=== PATIENT | female | born 1995 | race Caucasian/White ===

== ENCOUNTER → 2016-06-07 | Outpatient (CLI) | payer MEDICAID, OTHER, SELFPAY ==
[~2016-06-07] MED LIST: Motrin PO; NEOSPORIN TOP; Norco PO; Tylenol PO; birth control PO
== END ==
LOC: M OUTALCOH 12:48
PROVIDERS: ATTEND Psychiatry & Neurology Psychiatry
DX: Z13.9 Encounter for screening, unspecified (principal); F11.20 Opioid dependence, uncomplicated; F13.20 Sedative, hypnotic or anxiolytic dependence, uncomplicated; F12.20 Cannabis dependence, uncomplicated

== ENCOUNTER 2016-06-14 09:14 | Outpatient (RCR) | payer MEDICAID | END 2016-06-15 | LOC: M OUTALCOH 09:14 | PROVIDERS: ATTEND Psychiatry & Neurology Psychiatry ==

== ENCOUNTER → 2016-06-16 | Outpatient (REF) | payer OTHER | LOC: M SFHCPLAZ 15:49 | PROVIDERS: ATTEND Nurse Practitioner Family | DX: Z00.00 Encounter for general adult medical examination without abnormal findings (principal); Z53.8 Procedure and treatment not carried out for other reasons ==

== ENCOUNTER → 2016-06-17 | Outpatient (REF) | payer OTHER ==
[2016-06-17 15:22] LABS: BASO % 0.6 % (0.0-1.0); EOS # 0.1 K/mm3 (0.0-0.50); EOS % 1.2 % (0.0-3.0); LARGE UNSTAINED CELL # 0.2 K/mm3 (0.0-0.4); LARGE UNSTAINED CELL % 2.5 % (0.0-4.0); LYMPH # 2.3 K/mm3 (1.5-6.5); LYMPH % 31.6 % (24.0-44.0); MEAN CORPUSCULAR HEMOGLOBIN 28.5 pg (27.0-33.0); MEAN CORPUSCULAR HGB CONC 32.9 g/dl (32.0-36.5); MEAN CORPUSCULAR VOLUME 86.8 fl (80.0-96.0); MONO # 0.4 K/mm3 (0.0-0.8); NEUTROPHILS # 4.3 K/mm3 (1.8-7.7); NEUTROPHILS % 58.1 % (36.0-66.0); PLATELET COUNT, AUTOMATED 252 k/mm3 (150-450); RED CELL DISTRIBUTION WIDTH 14.3 % (11.5-14.5); WHITE BLOOD COUNT 7.4 K/mm3 (4.0-10.0)
[2016-06-17 15:37] LABS: ALBUMIN/GLOBULIN RATIO 1.25 (1.00-1.93); ALKALINE PHOSPHATASE 70 U/L (45-117); ALT/SGPT 19 U/L (12-78); ANION GAP 10 MEQ/L (8-16); AST/SGOT 16 U/L (15-37); BLOOD UREA NITROGEN 8 MG/DL (7-18); CALCIUM LEVEL 9.2 MG/DL (8.5-10.1); CARBON DIOXIDE LEVEL 24 MEQ/L (21-32); CHLORIDE LEVEL 107 MEQ/L (98-107); CREATININE FOR GFR 0.68 MG/DL (0.55-1.02); GLOMERULAR FILTRATION RATE > 60.0 (>60); GLUCOSE, FASTING 114 MG/DL (70-105); POTASSIUM SERUM 4.3 MEQ/L (3.5-5.1); SODIUM LEVEL 141 MEQ/L (136-145); TOTAL PROTEIN 7.2 GM/DL (6.4-8.2)
[2016-06-21 14:10] LABS: CONTROL LINE INT CTR LINE PRESENT; HIV SCRN NEGATIVE (NEGATIVE); HIV SCRN1 NEGATIVE (NEGATIVE)
== END ==
LOC: M SFHCPLAZ 13:44
PROVIDERS: ATTEND Nurse Practitioner Family
DX: Z00.00 Encounter for general adult medical examination without abnormal findings (principal); F19.90 Other psychoactive substance use, unspecified, uncomplicated

== ENCOUNTER → 2016-11-05 | Outpatient (CLI) | payer OTHER ==
--- NOTE | 2016-11-05 21:16 | REP ---
AP PELVIS: 11/05/2016. Clinical history: Pain. Findings: Two views were provided to encompass the entirety of the pelvis. There is some minor rim osteophytes for each femoral head and slight osteophyte formation acetabular roof. Hip joint spaces are symmetric, perhaps slightly narrowed. Pelvic ring intact. Pubic rami, symphysis pubis, and iliac wings without fracture. The SI joints, sacral ala and foramina intact. Impression: 1. Minor degenerative changes of the hips with rim osteophytes on the femoral head and acetabular roof although mild. Slight narrowing of the hip joint space. No other significant finding. Signed by Kennedy Eddy MD 11/06/2016 07:36 P
--- NOTE | 2016-11-05 21:23 | REP ---
AP LATERAL LEFT HIP: 11/05/2016. Comparison: AP pelvis today and a CT abdomen and pelvis 12/22/2011. Findings: Small rim osteophyte in the femoral head and at the acetabular roof margins. Slight narrowing of the hip joint space but no erosions, AVN, fracture or focal lesion. Acetabulum, ischia, symphysis pubis, iliac bone, and SI joints as well as sacral ala/foramina intact. Impression: 1. Minor degenerative changes at femoral head and acetabular roof with marginal osteophytes and mild joint space narrowing. No fracture, AVN or destructive lesion. Signed by Kennedy Eddy MD 11/06/2016 07:36 P
== END ==
LOC: M LRY 18:44
PROVIDERS: ATTEND Nurse Practitioner Family
DX: R10.2 Pelvic and perineal pain (principal); S79.912D Unspecified injury of left hip, subsequent encounter; X58.XXXD Exposure to other specified factors, subsequent encounter

== ENCOUNTER 2018-06-29 14:10 | Emergency (ER) | payer OTHER ==
[~2018-06-29] VITALS: Ht 160 cm; Wt 51.9 kg
[2018-06-29] MEDS ORDERED: BUSP15TA47 (14:18)
[2018-06-29] MEDS ORDERED: QUET1TAB8 (14:18)
[2018-06-29] MEDS ORDERED: SERT-155 (14:18)
[2018-06-29] MEDS ORDERED: LIDOCAINE 2% W/EPIN INJ 20ML **PRES FREE INJ ONE (15:00)
[2018-06-29] MEDS ORDERED: BACT800T5 PO (16:02)
[2018-06-29] MEDS ORDERED: FLAG500T PO (16:02)
[2018-06-29 16:11] VITALS: BP 101/59
[2018-06-29 17:11] LABS: CHLAMYDIA DNA AMPLIFICATION NEGATIVE (NEGATIVE); GC DNA AMPLIFICATION NEGATIVE (NEGATIVE)
== END 2018-06-29 16:15 | disposition home or self-care (01) ==
LOC: M ED 14:10
DX: N73.2 Unspecified parametritis and pelvic cellulitis (principal); N76.0 Acute vaginitis; Z88.5 Allergy status to narcotic agent; Z91.018 Allergy to other foods; F17.210 Nicotine dependence, cigarettes, uncomplicated

== ENCOUNTER → 2019-01-30 | Outpatient (CLI) | payer OTHER ==
[~2019-01-30] MED LIST changes: +BACT800T5 PO; +BUSP15TA47; +FLAG500T PO; +QUET1TAB8; +SERT50TA29
[2019-01-30 13:13] LABS: HEMATOCRIT 38.9 % (36.0-47.0); MEAN CORPUSCULAR HEMOGLOBIN 27.9 pg (27.0-33.0); MEAN CORPUSCULAR HGB CONC 30.8 g/dl (32.0-36.5); MEAN CORPUSCULAR VOLUME 90.5 fl (80.0-96.0); PLATELET COUNT, AUTOMATED 334 10^3/uL (150-450); WHITE BLOOD COUNT 6.6 10^3/uL (4.0-10.0)
[2019-01-30 13:45] LABS: ALBUMIN 3.3 GM/DL (3.2-5.2); ALT/SGPT 533 U/L (12-78); BILIRUBIN,TOTAL 1.7 MG/DL (0.2-1.0); BLOOD UREA NITROGEN 10 MG/DL (7-18); CALCIUM LEVEL 9.5 MG/DL (8.5-10.1); CARBON DIOXIDE LEVEL 32 MEQ/L (21-32); CHLORIDE LEVEL 101 MEQ/L (98-107); CREATININE FOR GFR 0.54 MG/DL (0.55-1.30); GLOMERULAR FILTRATION RATE > 60.0 (>60); GLUCOSE, FASTING 65 MG/DL (70-100); POTASSIUM SERUM 4.5 MEQ/L (3.5-5.1); SODIUM LEVEL 137 MEQ/L (136-145); TOTAL PROTEIN 7.3 GM/DL (6.4-8.2)
[2019-01-30 14:45] LABS: CHLAMYDIA DNA AMPLIFICATION NEGATIVE (NEGATIVE); GC DNA AMPLIFICATION NEGATIVE (NEGATIVE)
[2019-01-30 21:28] LABS: HCG, SERUM QUALITATIVE NEGATIVE (NEGATIVE)
[2019-01-31 09:53] LABS: HEPATITIS B SURFACE ANTIGEN NEGATIVE (NEGATIVE)
--- NOTE | 2019-01-31 10:18 | ECGEPIP ---
[facility] Test Date: 2019-01-30 Pat Name: CELINE ORTIZ Department: Room: - Gender: Female Cleaner Laboratory Equipment: TERRELL : 1995 Requested By: Luis Valencia Order Number: [id number] Reading MD: Yoan Richards Measurements Intervals [place] Rate: 69 P: 17 ME: 134 QRS: 77 QRSD: 101 T: 38 QT: 419 QTc: 449 Interpretive Statements SINUS RHYTHM WITH SINUS ARRHYTHMIA Comparison tracing not on file Electronically Signed on 01-31-2019 10:17:52 EDT by Yoan Richards
[2019-01-31 10:21] LABS: HEPATITIS C VIRUS ABY INDEX 0.1 INDEX (<0.8)
[2019-01-31 10:22] LABS: HIV 1&2 SCREEN CENTAUR NEGATIVE (NEGATIVE)
== END ==
LOC: M LAB 11:38
PROVIDERS: ATTEND Family Medicine
DX: F11.20 Opioid dependence, uncomplicated (principal)

== ENCOUNTER → 2019-07-12 | Outpatient (CLI) | payer MEDICAID ==
[~2019-07-12] MED LIST changes: +QUET100T2; -QUET1TAB8
[2019-07-12 17:46] LABS: BASO % 0.2 % (0.0-1.0); EOS # 0.1 10^3/uL (0.0-0.5); HEMATOCRIT 40.3 % (36.0-47.0); HEMOGLOBIN 13.1 g/dl (12.0-15.5); LYMPH # 2.1 10^3/uL (1.5-5.0); LYMPH % 24.4 % (24.0-44.0); MEAN CORPUSCULAR HEMOGLOBIN 28.7 pg (27.0-33.0); MEAN CORPUSCULAR HGB CONC 32.5 g/dl (32.0-36.5); MEAN CORPUSCULAR VOLUME 88.2 fl (80.0-96.0); MONO # 0.7 10^3/uL (0.0-0.8); MONO % 8.1 % (0.0-5.0); NEUTROPHILS # 5.8 10^3/uL (1.5-8.5); NEUTROPHILS % 65.8 % (36.0-66.0); PLATELET COUNT, AUTOMATED 253 10^3/uL (150-450); RED BLOOD COUNT 4.57 10^6/uL (4.00-5.40); WHITE BLOOD COUNT 8.8 10^3/uL (4.0-10.0)
[2019-07-12 18:26] LABS: ALBUMIN 3.9 GM/DL (3.2-5.2); ALT/SGPT 27 U/L (12-78); BILIRUBIN,TOTAL 1.4 MG/DL (0.2-1.0); BLOOD UREA NITROGEN 6 MG/DL (7-18); CALCIUM LEVEL 8.8 MG/DL (8.5-10.1); CARBON DIOXIDE LEVEL 30 MEQ/L (21-32); CHLORIDE LEVEL 104 MEQ/L (98-107); CREATININE FOR GFR 0.48 MG/DL (0.55-1.30); GLOMERULAR FILTRATION RATE > 60.0 (>60); GLUCOSE, FASTING 60 MG/DL (70-100); HCG, SERUM QUANTITATIVE 66022 MIU/ML; POTASSIUM SERUM 3.8 MEQ/L (3.5-5.1); SODIUM LEVEL 138 MEQ/L (136-145); TOTAL PROTEIN 7.2 GM/DL (6.4-8.2)
== END ==
LOC: M LAB 17:03
PROVIDERS: ATTEND Physician Assistant
DX: F11.14 Opioid abuse with opioid-induced mood disorder (principal); Z33.1 Pregnant state, incidental

== ENCOUNTER → 2019-07-18 | Outpatient (CLI) | payer MEDICAID ==
--- NOTE | 2019-07-18 13:41 | REP ---
FIRST TRIMESTER ULTRASOUND: Real-time sonographic evaluation gravid uterus performed. There is a single living intrauterine gestation. The estimated gestational age is 12 weeks 4 days based on today's ultrasound measurements with EDC 01/26/2020. BPD 18 mm = 12 weeks 5 days HC 67 mm = 12 weeks 5 days AC 66 mm = 12 weeks 3 days FL 8 mm = 12 weeks 3 days heart rate 152 beats per minute. There is no subchorionic hemorrhage. No maternal adnexal regional abnormalities are seen. The ovaries are normal in size and echotexture. Electronically Signed by Luis Gasca MD 07/18/2019 04:11 P
[2019-07-18 14:58] LABS: HEPATITIS C VIRUS ABY INDEX < 0.0 INDEX (<0.8); HIV 1&2 SCREEN CENTAUR NEGATIVE (NEGATIVE)
== END ==
LOC: M RAD 12:25
PROVIDERS: ATTEND Physician Assistant
DX: Z36.89 Encounter for other specified antenatal screening (principal); Z3A.12 12 weeks gestation of pregnancy

== ENCOUNTER → 2019-07-30 | Outpatient (REF) | payer OTHER | LOC: M PLALAB 13:46 | PROVIDERS: ATTEND Obstetrics & Gynecology | DX: Z53.9 Procedure and treatment not carried out, unspecified reason (principal) ==

== ENCOUNTER → 2019-07-30 | Outpatient (CLI) | payer MEDICAID ==
[2019-07-30 13:35] LABS: HEMATOCRIT 41.9 % (36.0-47.0); HEMOGLOBIN 14.3 g/dl (12.0-15.5); MEAN CORPUSCULAR HEMOGLOBIN 29.9 pg (27.0-33.0); MEAN CORPUSCULAR HGB CONC 34.1 g/dl (32.0-36.5); MEAN CORPUSCULAR VOLUME 87.7 fl (80.0-96.0); PLATELET COUNT, AUTOMATED 270 10^3/uL (150-450); RED BLOOD COUNT 4.78 10^6/uL (4.00-5.40); WHITE BLOOD COUNT 8.7 10^3/uL (4.0-10.0)
[2019-07-30 14:50] LABS: ALBUMIN 3.7 GM/DL (3.2-5.2); ALT/SGPT 19 U/L (12-78); BILIRUBIN,TOTAL 1.1 MG/DL (0.2-1.0); BLOOD UREA NITROGEN 9 MG/DL (7-18); CALCIUM LEVEL 9.2 MG/DL (8.5-10.1); CARBON DIOXIDE LEVEL 25 MEQ/L (21-32); CHLORIDE LEVEL 104 MEQ/L (98-107); CREATININE FOR GFR 0.54 MG/DL (0.55-1.30); GLOMERULAR FILTRATION RATE > 60.0 (>60); GLUCOSE, FASTING 72 MG/DL (70-100); HCG, SERUM QUANTITATIVE 47326 MIU/ML; HEPATITIS B SURFACE ANTIGEN NEGATIVE (NEGATIVE); HEPATITIS C VIRUS ABY INDEX < 0.0 INDEX (<0.8); HIV 1&2 SCREEN CENTAUR NEGATIVE (NEGATIVE); SODIUM LEVEL 136 MEQ/L (136-145); TOTAL PROTEIN 7.2 GM/DL (6.4-8.2)
[2019-08-01 14:07] LABS: HEPATITIS C QUANTITATION HCV Not Detected IU/mL (.)
== END ==
LOC: M LAB 12:42
PROVIDERS: ATTEND Family Medicine
DX: F11.10 Opioid abuse, uncomplicated (principal)

== ENCOUNTER → 2019-09-05 | Outpatient (REF) | payer OTHER ==
[2019-09-05 15:22] LABS: HEMATOCRIT 35.6 % (36.0-47.0); HEMOGLOBIN 12.1 g/dl (12.0-15.5); MEAN CORPUSCULAR HEMOGLOBIN 29.7 pg (27.0-33.0); MEAN CORPUSCULAR VOLUME 87.5 fl (80.0-96.0); PLATELET COUNT, AUTOMATED 239 10^3/uL (150-450); RED BLOOD COUNT 4.07 10^6/uL (4.00-5.40); WHITE BLOOD COUNT 11.3 10^3/uL (4.0-10.0)
[2019-09-05 16:39] LABS: HEPATITIS B SURFACE ANTIGEN NEGATIVE (NEGATIVE); HEPATITIS C VIRUS ABY INDEX 0.1 INDEX (<0.8); HIV 1&2 SCREEN CENTAUR NEGATIVE (NEGATIVE); RUBELLA IgG QUALITATIVE IMMUNE (IMMUNE)
== END ==
LOC: M PLALAB 13:58
PROVIDERS: ATTEND Obstetrics & Gynecology
DX: Z34.91 Encounter for supervision of normal pregnancy, unspecified, first trimester (principal)

== ENCOUNTER → 2019-09-14 | Outpatient (CLI) | payer OTHER ==
--- NOTE | 2019-09-14 15:28 | REP ---
OBSTETRIC SONOGRAPHY: HISTORY: Supervision of , for anatomy. FINDINGS: Scanning through the gravid uterus demonstrates a single living intrauterine gestation in a cephalic lie. motion is observed, and heart rate is recorded at 140 beats per minute. An anterior grade 1 placenta is seen without evidence of previa or abruption. Amniotic fluid is subjectively normal. Closed cervical length is 3.5 cm, viewed transabdominally. No extrauterine abnormalities observed. No abnormality is observed. Right ventricular cardiac outflow tract view is less than optimally achieved due to position. The following additional anatomic structures are identified and felt to be unremarkable: cranium, choroid plexus, cavum, cerebellum and posterior fossa, face and profile, lungs, four-chamber heart with left ventricular outflow tract view, diaphragm, left-sided stomach, abdominal wall cord insertion, three-vessel cord, kidneys and bladder, spine, upper and lower extremities. BIOMETRY CHART: BPD 4.8 cm = 20 weeks 3 days Head circumference 17.5 cm = 20 weeks 0 days Abdominal circumference 15.7 cm = 20 weeks 6 days Femur length 3.3 cm = 20 weeks 3 days Humeral length 3.1 cm = 20 weeks 3 days HC/AC ratio normal 1.11 Cephalic index normal 0.77 Estimated weight 366 grams, 0 pounds 12 ounces, 37th percentile for 20 weeks 6 days. IMPRESSION: Viable single intrauterine gestation at 20 weeks 3 days by today's composite criteria. Expected gestational age estimate based on prior sonography is 20 weeks 6 days. [place] by prior sonography, January 26, 2020. No abnormality is noted. The right ventricular cardiac outflow tract view is less than optimally visualized. Electronically Signed by Michael Lainez MD 09/14/2019 04:20 P
== END ==
LOC: M RAD 13:08
PROVIDERS: ATTEND Advanced Practice Midwife
DX: Z34.02 Encounter for supervision of normal first pregnancy, second trimester (principal)

== ENCOUNTER → 2019-11-01 | Outpatient (CLI) | payer OTHER ==
[~2019-11-01] MED LIST changes: -BUSP15TA47; +BUSP15TA47 PO; +DOCU100C16 PO; +IBUP80TA PO; +METH10TA2 PO; +PERCOCET PO; +PRENTAB9 PO
[2019-11-01 16:41] LABS: HEMOGLOBIN 11.5 g/dl (12.0-15.5); MEAN CORPUSCULAR HEMOGLOBIN 30.7 pg (27.0-33.0); MEAN CORPUSCULAR HGB CONC 32.9 g/dl (32.0-36.5); MEAN CORPUSCULAR VOLUME 93.3 fl (80.0-96.0); PLATELET COUNT, AUTOMATED 238 10^3/uL (150-450); RED BLOOD COUNT 3.75 10^6/uL (4.00-5.40); WHITE BLOOD COUNT 8.9 10^3/uL (4.0-10.0)
== END ==
LOC: M WUC 10:48
PROVIDERS: ATTEND Advanced Practice Midwife
DX: Z36.89 Encounter for other specified antenatal screening (principal)

== ENCOUNTER → 2019-11-20 | Outpatient (REF) | payer OTHER ==
[2019-11-20 19:40] LABS: CHLAMYDIA DNA AMPLIFICATION NEGATIVE (NEGATIVE); GC DNA AMPLIFICATION NEGATIVE (NEGATIVE)
== END ==
LOC: M SFHCWAGY 16:56
PROVIDERS: ATTEND Advanced Practice Midwife
DX: Z34.03 Encounter for supervision of normal first pregnancy, third trimester (principal)

== ENCOUNTER → 2019-12-27 | Outpatient (REF) | payer OTHER | LOC: M SFHCWAGY 08:56 | PROVIDERS: ATTEND Advanced Practice Midwife | DX: Z36.85 Encounter for antenatal screening for Streptococcus B (principal) ==

== ENCOUNTER 2020-01-29 07:40 | Inpatient (IN) | payer OTHER ==
[2020-01-29] VITALS (50 sets, daily range): BP systolic 89–148; BP diastolic 49–76
[~2020-01-29] VITALS: Ht 160 cm; Wt 88.7 kg
[~2020-01-29 07:40] MED LIST changes: -DOCU100C16 PO; -IBUP80TA PO; -METH10TA2 PO; -PERCOCET PO; -PRENTAB9 PO
[2020-01-29] MEDS ORDERED: LACTATED RINGER'S 1000 ML IV STA (09:32)
[2020-01-29] MEDS ORDERED: PENICILLIN G POTASSIUM IV 5 MU in D5W MINI-BAG PLUS 100 ML IV STA ×2 (09:32→11:16)
[2020-01-29] MEDS ORDERED: OXYTOCIN DRIP 30 UNITS in IV 1 EA IV SCH (09:45)
[2020-01-29 09:51] LABS: HEMATOCRIT 38.1 % (36.0-47.0); HEMOGLOBIN 13.2 g/dl (12.0-15.5); MEAN CORPUSCULAR HEMOGLOBIN 30.8 pg (27.0-33.0); MEAN CORPUSCULAR HGB CONC 34.6 g/dl (32.0-36.5); MEAN CORPUSCULAR VOLUME 88.8 fl (80.0-96.0); PLATELET COUNT, AUTOMATED 213 10^3/uL (150-450); RED BLOOD COUNT 4.29 10^6/uL (4.00-5.40); WHITE BLOOD COUNT 8.3 10^3/uL (4.0-10.0)
[2020-01-29] MEDS ORDERED: METH10TA2 PO (09:59)
[2020-01-29] MEDS ORDERED: PRENTAB9 PO (09:59)
[2020-01-29] MEDS ORDERED: CALCIUM CARBONATE 500 MG CHEW U/D PO ONE (10:00)
--- NOTE | 2020-01-29 10:01 | HPEPDOC ---
Obstetrical History & Physical General Date of Admission Jan 29, 2020 at 07:40 History of Present Illness 24-year-old G2, P0010 at 40+3 weeks gestation. Presents today for an elective non-medically indicated induction of labor. She is currently incarcerated. No complications. However, patient is opioid dependent on methadone 65 mg per day. She also takes BuSpar 15 mg twice a day. 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 History: Spontaneous Past Medical History Medical History Opioid dependence, depression, anxiety Surgical History: Other (left eye, retinal detachment repair) Family History Significant Family History: Asthma, Diabetes Social History Social history Pt enrolled in [employer] program Marital Status: Single Psychosocial History: Anxiety, Depression * Smoker: non-smoker Alcohol: Denies Drugs: heroin (past use) Abuse Violence Screening Have you been hit/kicked/slapp: No Have you been sexually assault: No Allergies Coded Allergies: latex (Verified Allergy, Intermediate, RASH, 01/29/20) tomato (Verified Allergy, Intermediate, spaghetti sauce- skin rash, 01/29/20) codeine (Verified Adverse Reaction, Mild, night terrors, 01/29/20) Medications Scheduled Buspirone HCl (Buspirone HCl) 15 Mg Tab, 15 PO BID Methadone HCl (Methadone HCl) 10 Mg Tablet, 65 MG PO DAILY No.137/Iron/Folic Acd ( Vitamin Tablet) 1 Each Tablet, 1 TAB PO DAILY Physical Examination Physical Examination GENERAL: Alert and oriented times three. BREAST: . ABDOMEN: Gravid and non-tender to touch. FETUS: Is vertex (VTX) by sterile vaginal examination (SVE), fetus is vertex (VT X) by Gavin. HEART RATE: Regular rate and rhythm. LUNGS: Clear to auscultation (CTA). EXTREMITIES: No edema. No clonus. Deep tendon reflexes (DTRs) + 2. Vital Signs/I&O Vital Signs Date Time Temp Pulse Resp B/P (MAP) Pulse Ox O2 Delivery O2 Flow Rate FiO2 9/15/20 07:57 97.4 85 18 127/75 (92) Laboratory Data 24H LABS Laboratory Tests 2 01/29/20 07:59: Serology Scanned Report Hepatitis B Testing CBC/BMP Laboratory Tests 01/29/20 09:00 Pertinent Laboratoy Data Blood Type: O+ RBC Antibody Screen: Negative HIV: Negative Hepatitis B: Negative Hepatitis C: Negative Rapid Plasma Reagin: Nonreactive Rubella: Immune Chlamydia/Gonorrhea: Negative Group B Streptococcus: Positive Glucose Tolerance Test: 105 Anatomy Ultrasound Normal Anatomy: Yes (2nd trimester routine US) Placenta Previa: No Vaginal Examination Dilation: 3 cm Effacement: 70% Station: -3 Cervical Consistency: Soft Cervical Position: Posterior Presentation: Cephalic presentation Assessment Heart Rate (FHR): 130 Variability: Moderate Accelerations: Positive Decelerations: None Tocometer Contractions: Yes Frequency: irregular Assessment/Plan Assessment Catie is a 24-year-old (G)2 para (P)0-0-1-0 at 40+2 weeks by first TM US/LMP. Presents to Labor and Delivery (L&D) for elective IOL. Plan Admit and orient. Paper Machine Back Tender and consent. Diet: clear. Group B Streptococcus (GBS) positive. Labs and intravenous (IV) per unit protocol. Counseled on Pitocin and induction of labor (IOL). Lactated Ringers (LR): Bolus 1000 mL, then at 125 mL/hr. Anticipate normal spontaneous delivery (). C-S as appropriate. SPRING MONTGOMERY DO Jan 29, 2020 10:01
[2020-01-29] MEDS: LR 1,000 ML IV SCH ×2 (11:08→15:57)
[2020-01-29] MEDS: busPIRone 5 MG TAB PO SCH ×2 (11:31→21:24)
[2020-01-29] MEDS: METHADONE 10 MG TAB (S0109) PO SCH (11:32)
[2020-01-29] MEDS ORDERED: PENICILLIN G POTASSIUM IV 2.5 MU in IV 1 EA IV SCH (13:45)
[2020-01-29] MEDS: PENICILLIN G POTASSIUM IV 2.5 MU in IV 1 EA IV SCH ×2 (15:55→19:30)
--- NOTE | 2020-01-29 19:22 | IPNPDOC ---
Obstetrical Progress Note Date of Service Jan 29, 2020 Subjective Feeling much more uncomfortable with contractions. No LOF. Mild spotting. Plans on getting epidural soon. Objective Vital Signs Date Time Temp Pulse Resp B/P (MAP) Pulse Ox O2 Delivery O2 Flow Rate FiO2 01/29/20 18:05 98.2 75 16 114/59 (77) Assessment Heart Rate (FHR): 110 Variability: Moderate Accelerations: Positive Decelerations: None Heart Rate Tracing: Category I Tocometer Contractions: Yes Frequency: every 3-7 min. Sterile Vaginal Examination Dilation: 4 cm Effacement (%): 70% Station: -2 Cervical Consistency: Soft Cervical Position: Middle Postion/Presentation: Cephalic presentation Assessment and Plan Status: Reassuring Additional Comments AROM clear Continue Pitocin Consult anesthesia for epidural upon patient request. SPRING MONTGOMERY DO Jan 29, 2020 19:22
[2020-01-29] MEDS ORDERED: FENTANYL 2MCG/ML ROPIVACAINE 0.2% IN 0.9% NACL 100ML IVBAG As Ordered ONE (19:27)
[2020-01-29] MEDS ORDERED: EPIDURAL COMMENT XX SCH (20:55)
[2020-01-29] MEDS ORDERED: FENTANYL/ROPIVACAINE/NACL BAG 100 ML EPIDURAL SCH (20:55)
[2020-01-29] MEDS ORDERED: EPIDURAL/PCA KEYS XX PRN (20:55)
[2020-01-29] MEDS ORDERED: ePHEDrine SULFATE 25 MG/5 ML(5MG/ML) SYRINGE IV PRN (20:55)
[2020-01-29] MEDS ORDERED: NALOXONE INJ 0.4MG/1ML VIAL (J2310 PER 1MG) IV PRN (20:55)
[2020-01-29] MEDS ORDERED: REFRIGERATOR IV KEYS XX PRN (20:55)
[2020-01-29] MEDS ORDERED: diphenhydrAMINE 50MG/ML VIAL (J1200) IV PRN (20:55)
[2020-01-29] MEDS ORDERED: LACTATED RINGER'S 1000 ML IV PRN (20:55)
[2020-01-29] MEDS ORDERED: ONDANSETRON 4MG/2ML VIAL IV PRN (20:55)
[2020-01-29] MEDS ORDERED: **PENDING PCN ENTRY XX SCH (21:00)
[2020-01-29] MEDS ORDERED: ePHEDrine SULFATE 25 MG/5 ML(5MG/ML) SYRINGE As Ordered ONE (21:09)
--- NOTE | 2020-01-29 23:00 | IPNPDOC ---
Obstetrical Progress Note Date of Service Jan 29, 2020 Subjective Pt comfortable with epidural. Objective Vital Signs Date Time Temp Pulse Resp B/P (MAP) Pulse Ox O2 Delivery O2 Flow Rate FiO2 01/29/20 22:33 90 18 118/64 (82) 01/29/20 19:34 97.8 Assessment Heart Rate Tracing: Category I (+scalp stim) Tocometer Contractions: Yes Frequency: every 3-7 min. Sterile Vaginal Examination Dilation: 5 cm Effacement (%): 90% Station: -1 Cervical Consistency: Soft Cervical Position: Anterior Postion/Presentation: Cephalic presentation Assessment and Plan Status: Reassuring Group B Streptococcus: Positive Anticipate: Vaginal Delivery Additional Comments Early active labor. Reassuring maternal and status. Good pain control. -Continue low dose Pitocin protocol. DO VALENTINA Esquivel JONATHAN R. DO Jan 29, 2020 23:00
[2020-01-30] VITALS (20 sets, daily range): BP systolic 99–136; BP diastolic 53–79
[2020-01-30] MEDS: PENICILLIN G POTASSIUM IV 2.5 MU in IV 1 EA IV SCH ×2 (00:33→07:06)
[2020-01-30] MEDS ORDERED: FENTANYL 2MCG/ML ROPIVACAINE 0.2% IN 0.9% NACL 100ML IVBAG As Ordered ONE (02:54)
--- NOTE | 2020-01-30 04:12 | IPNPDOC ---
Obstetrical Progress Note Date of Service Jan 30, 2020 Subjective Patient reports feeling rectovaginal pressure. Objective Vital Signs Date Time Temp Pulse Resp B/P (MAP) Pulse Ox O2 Delivery O2 Flow Rate FiO2 01/30/20 03:00 82 18 118/62 (80) 01/30/20 01:31 98.5 Assessment Heart Rate Tracing: Category I Tocometer Contractions: Yes Frequency: every 2-5 min. Sterile Vaginal Examination Dilation: 9 cm Effacement (%): 100% Station: -1 Postion/Presentation: Cephalic presentation Assessment and Plan Status: Reassuring Group B Streptococcus: Positive Anticipate: Vaginal Delivery Additional Comments Approaching second stage of labor. Reassuring maternal and status. SPRING MONTGOMERY DO Jan 30, 2020 04:12
--- NOTE | 2020-01-30 06:21 | IPNPDOC ---
Obstetrical Progress Note Date of Service Jan 30, 2020 Subjective Pt uncomfortable during pushing efforts. Objective Vital Signs Date Time Temp Pulse Resp B/P (MAP) Pulse Ox O2 Delivery O2 Flow Rate FiO2 01/30/20 03:00 82 18 118/62 (80) 01/30/20 01:31 98.5 Assessment Heart Rate Tracing: Category I Tocometer Frequency: every 2-5 min. Sterile Vaginal Examination Dilation: complete ((Since 544)) Effacement (%): 100% Station: 0 Postion/Presentation: Cephalic presentation Assessment and Plan Additional Comments Continue maternal pushing efforts and Pitocin augmentation Reassuring maternal and status. SPRNIG MONTGOMERY DO Jan 30, 2020 06:21
[2020-01-30] MEDS: LR 1,000 ML IV SCH ×2 (07:06→23:37)
[2020-01-30] MEDS ORDERED: LACTATED RINGER'S 1000 ML IV STA (08:08)
[2020-01-30] MEDS ORDERED: ceFAZolin 2 GM/D5W 50 ML IV BAG (J0690 PER 500MG) As Ordered ONE (08:12)
[2020-01-30] MEDS ORDERED: BICITRA 30ML SOLN UDC As Ordered ONE (08:13)
[2020-01-30] MEDS ORDERED: BICITRA 30ML SOLN UDC PO ONE (08:15)
[2020-01-30] MEDS ORDERED: AZITHROMYCIN INJ 500 MG, VIAL MATE ADAPTER 1 EACH in D5W 250 ML IV ONE (08:15)
[2020-01-30] MEDS ORDERED: ceFAZolin SOD 2 GM in IV 1 EA IV ONE (08:15)
--- NOTE | 2020-01-30 08:22 | IPNPDOC ---
Obstetrical Progress Note Date of Service Jan 30, 2020 Subjective Patient is exhausted and pushing efforts have significantly diminished. Objective Vital Signs Date Time Temp Pulse Resp B/P (MAP) Pulse Ox O2 Delivery O2 Flow Rate FiO2 01/30/20 07:00 98.8 98 18 129/72 (91) Assessment Heart Rate Tracing: Category I Tocometer Contractions: Yes Frequency: every 2-5 min. Sterile Vaginal Examination Dilation: complete Effacement (%): 100% Station: 0 Assessment and Plan Status: Reassuring Additional Comments Minimal descent since pushing efforts started at 0545. Maternal pushing efforts are poor, with minimal to no movement of presenting vertex despite pushes and Pi tocin augmentation. Offered PLTCS for arrest of descent/CPD. Patient agrees to proceed in this fashion. Preparations for OR activated. Anesthesia and Peds are aware. SPRING MONTGOMERY DO Jan 30, 2020 08:22
[2020-01-30] MEDS ORDERED: KETOROLAC 60MG 2ML VIAL As Ordered ONE (08:24)
[2020-01-30] MEDS ORDERED: ONDANSETRON 4MG/2ML VIAL As Ordered ONE (08:24)
[2020-01-30] MEDS ORDERED: fentaNYL 100 MCG/2 ML INJECTION (J3010) As Ordered ONE (08:24)
[2020-01-30] MEDS ORDERED: dexameTHASONE 4 MG/ML 1ML VIAL (J1100 PER 1MG) As Ordered ONE (08:24)
[2020-01-30] MEDS ORDERED: OXYTOCIN INJ 10 UNITS/ML VIAL (J2590) As Ordered ONE (08:24)
[2020-01-30] MEDS ORDERED: MORPHINE PRES-FREE INJ 10 MG/10 ML VIAL (J2274) As Ordered ONE (08:25)
[2020-01-30] MEDS ORDERED: NALOXONE INJ 0.4MG/1ML VIAL (J2310 PER 1MG) IV PRN ×2 (08:40)
[2020-01-30] MEDS ORDERED: diphenhydrAMINE 50MG/ML VIAL (J1200) IV PRN (08:40)
[2020-01-30] MEDS ORDERED: ONDANSETRON 4MG/2ML VIAL IV PRN ×2 (08:40→10:15)
[2020-01-30] MEDS ORDERED: METOCLOPRAMIDE INJ 10MG/2ML VIAL (J2765 PER 1) IV PRN ×2 (08:40→10:15)
[2020-01-30] MEDS ORDERED: NALBUPHINE HCL 10 MG/ML AMP (J2300) IV PRN (08:40)
[2020-01-30] MEDS ORDERED: ePHEDrine SULFATE 25 MG/5 ML(5MG/ML) SYRINGE As Ordered ONE (09:08)
[2020-01-30] MEDS ORDERED: OXYTOCIN DRIP 30 UNITS in IV 1 EA IV SCH (09:43)
[2020-01-30] MEDS ORDERED: RHOGAM 300 MCG (1500 IU) INJ (J2790) IM SCH (09:45)
[2020-01-30] MEDS ORDERED: MEASLES,MUMPS,RUBELLA VACCINE INJ (MMR-II) (90707) SC SCH (09:45)
[2020-01-30] MEDS ORDERED: ONDANSETRON 4 MG TAB PO PRN (09:45)
[2020-01-30] MEDS ORDERED: PERCOCET 5MG/325MG TAB PO PRN ×2 (09:45→10:15)
[2020-01-30] MEDS ORDERED: PROMETHAZINE 25 MG TAB PO PRN (09:45)
[2020-01-30] MEDS ORDERED: ACETAMINOPHEN 500 MG TAB PO PRN (09:45)
--- NOTE | 2020-01-30 09:53 | ROOPDOC ---
[facility] Report Of Operation Report of Operation DATE OF PROCEDURE: 01/30/2020 PREPROCEDURE DIAGNOSES:, 40+ weeks gestation, arrest of descent POSTPROCEDURE DIAGNOSES:. Same as preoperative PROCEDURE: Primary low transverse section SURGEON: Joseluis Love DO FACOG YARDER ENGINEER: Vamsi Morris CNM (Essential role in retraction, extraction, and closure of all tissue layers) ANESTHESIA: Spinal w/ Duramorph ESTIMATED BLOOD LOSS: 700 mL. IV FLUIDS: 1300 mL LR URINE OUTPUT: 150 mL COMPLICATIONS: None. PREOPERATIVE ANTIBIOTICS: Ancef 2g IV x 1, Azithromycin 500mg IV x 1. COMPLICATIONS: none DATA: Apgars 9 and 9. Birthweight 3420 g, 7 lbs 9 oz. SPECIMENS: none PRIMARY INDICATION FOR : Arrest of descent DESCRIPTION OF PROCEDURE: The patient was counseled on the risks, benefits, indications and alternatives of the procedure. Informed consent was obtained. She was taken to the operating room with IV running and placed on the operating table in the dorsal supine position with a leftward tilt. Regional anesthesia/epidural was bolused and found to be adequate. Sequential compression devices were placed on the lower extremities. A Reyes catheter was placed under sterile conditions. She was prepared and draped in normal sterile fashion. A time out was performed per protocol. Epidural anesthesia was again found to be adequate. A Pfannenstiel skin incision was made with the 10 blade. The 10 blade was used to dissect down to the level of the rectus sheath fascia. The rectus sheath pressure was incised midline and this was extended bilaterally with Restrepo scissors , and manual stretch. The rectus muscle bellies were dissected off the rectus sheath fascia superiorly and inferiorly using both sharp and blunt dissection. The midline was identified. The peritoneum was identified and entered digitally. The peritoneal opening was extended with manual stretch. The Mobius retractor was placed. The vesicouterine peritoneum was dissected with Metzenbaum scissors to create the bladder flap. A low transverse uterine incision was made with the 10 blade. This was extended with manual stretch. The amniotic sac was punctured, and clear fluid was noted. The head delivered through the hysterotomy without difficulty. The remainder of the body delivered with ease. The cord was doubly clamped and cut, and the baby was handed off to awaiting care. data shown above. The placenta was removed manually. The intrauterine cavity was cleared of all clot and debri s. The hysterotomy was closed with 0 Vicryl in running locked fashion. This was reinforced with a second imbricating layer using 0 Vicryl in running fashion. Additional [id number] stitches were placed along the hysterotomy to achieve. Excellent hemostasis of the hysterotomy was noted. The pelvis was irrigated and the fluid suctioned. The Mobius retractor was removed. The peritoneum was closed with 3-0 Vicryl running fashion. The rectus muscle bellies were reapproximated with interrupted stitches using 3-0 Vicryl. The rectus muscles bellies were hemostatic. The rectus sheath fascia was closed with 0 Vicryl running fashion. The subcutaneous layer was irrigated and the fluid suctioned. Small bleeding vessels were cauterized with Bovie. Excellent hemostasis was noted. The subcutaneous layer was reapproximated with 3-0 Vicryl running fashion. Skin was closed with 3-0 Monocryl in subcuticular fashion. An Optifoam bandage was placed over the closed incision. Sponge, needle and instrument counts were correct per protocol throughout the procedure. The patient tolerated the entire procedure very well. She was transferred to the PACU in stable condition. DO JUNIOR Hodge JONATHAN R. DO Jan 30, 2020 09:53
[2020-01-30] MEDS ORDERED: IBUP80TA PO (09:56)
[2020-01-30] MEDS ORDERED: DOCU100C16 PO (09:56)
[2020-01-30] MEDS ORDERED: PERCOCET PO (09:56)
[2020-01-30] MEDS ORDERED: MEPERIDINE INJ 25 MG/ML VIAL (J2175) IV PRN (10:15)
[2020-01-30] MEDS ORDERED: fentaNYL 100 MCG/2 ML INJECTION (J3010) IV PRN (10:15)
[2020-01-30] MEDS ORDERED: LR 1,000 ML IV SCH (10:15)
[2020-01-30] MEDS ORDERED: OXYTOCIN 30 UNITS IN 0.9% NaCl 500ML IV BAG (J2590) As Ordered ONE (10:32)
[2020-01-30] MEDS: METHADONE 10 MG TAB (S0109) PO SCH (14:04)
[2020-01-30] MEDS: busPIRone 5 MG TAB PO SCH ×2 (14:04→21:22)
[2020-01-30] MEDS: KETOROLAC 30 MG/ML 1ML VIAL IV SCH ×2 (15:31→21:22)
[2020-01-30] MEDS: PERCOCET 5MG/325MG TAB PO PRN (18:23)
[2020-01-30] MEDS: DOCUSATE SODIUM 100 MG CAP PO SCH (21:22)
[2020-01-30] MEDS ORDERED: LACTATED RINGER'S 1000 ML IV ONE (22:00)
[2020-01-31] VITALS (14 sets, daily range): BP systolic 100–124; BP diastolic 52–79
[2020-01-31] MEDS: PERCOCET 5MG/325MG TAB PO PRN ×4 (01:47→20:42)
[2020-01-31] MEDS: KETOROLAC 30 MG/ML 1ML VIAL IV SCH (03:28)
[2020-01-31] MEDS: LR 1,000 ML IV SCH (06:42)
[2020-01-31] MEDS ORDERED: LACTATED RINGER'S 1000 ML IV ONE (06:45)
[2020-01-31 06:52] LABS: HEMATOCRIT 21.1 % (36.0-47.0); MEAN CORPUSCULAR HEMOGLOBIN 30.2 pg (27.0-33.0); MEAN CORPUSCULAR HGB CONC 33.2 g/dl (32.0-36.5); MEAN CORPUSCULAR VOLUME 90.9 fl (80.0-96.0); PLATELET COUNT, AUTOMATED 175 10^3/uL (150-450); RED BLOOD COUNT 2.32 10^6/uL (4.00-5.40); WHITE BLOOD COUNT 9.1 10^3/uL (4.0-10.0)
[2020-01-31] MEDS: busPIRone 5 MG TAB PO SCH ×2 (09:12→20:42)
[2020-01-31] MEDS: METHADONE 10 MG TAB (S0109) PO SCH (09:12)
[2020-01-31] MEDS: PRENATAL VITAMINS CHEWABLE TABLET PO SCH (09:12)
[2020-01-31] MEDS: DOCUSATE SODIUM 100 MG CAP PO SCH ×2 (09:12→20:41)
[2020-01-31] MEDS: IBUPROFEN 800 MG TAB PO SCH ×2 (10:40→18:47)
[2020-01-31] MEDS ORDERED: diphenhydrAMINE 25MG CAP PO ONE (15:00)
[2020-02-01 02:00] VITALS: BP 116/71
[2020-02-01] MEDS: IBUPROFEN 800 MG TAB PO SCH ×2 (03:15→11:46)
[2020-02-01] MEDS: PERCOCET 5MG/325MG TAB PO PRN ×2 (04:49→12:41)
[2020-02-01 06:00] VITALS: BP 120/78
[2020-02-01 07:22] LABS: HEMATOCRIT 26.1 % (36.0-47.0); HEMOGLOBIN 8.7 g/dl (12.0-15.5); MEAN CORPUSCULAR HEMOGLOBIN 29.8 pg (27.0-33.0); MEAN CORPUSCULAR HGB CONC 33.3 g/dl (32.0-36.5); MEAN CORPUSCULAR VOLUME 89.4 fl (80.0-96.0); PLATELET COUNT, AUTOMATED 195 10^3/uL (150-450); RED BLOOD COUNT 2.92 10^6/uL (4.00-5.40); WHITE BLOOD COUNT 10.1 10^3/uL (4.0-10.0)
[2020-02-01] MEDS: METHADONE 10 MG TAB (S0109) PO SCH (08:56)
[2020-02-01] MEDS: PRENATAL VITAMINS CHEWABLE TABLET PO SCH (08:57)
[2020-02-01] MEDS: DOCUSATE SODIUM 100 MG CAP PO SCH (08:57)
[2020-02-01] MEDS: busPIRone 5 MG TAB PO SCH (08:58)
--- NOTE | 2020-02-01 09:22 | DS.PDOC ---
Discharge Summary General Date of Admission Jan 29, 2020 at 07:40 Date of Discharge 02/01/2020 Attending Physician: SPRING MONTGOMERY DO Discharge Summary PROCEDURES PERFORMED DURING STAY: section. ADMITTING DIAGNOSES: 1. Induction of labor. DISCHARGE DIAGNOSES: 1. Arrest descent. COMPLICATIONS/CHIEF COMPLAINT: Induction. HISTORY OF PRESENT ILLNESS: 24-year-old 2 para 0 who presented at 40+ weeks for induction labor she had arrest of descent after pushing for several hours underwent a section was productive of a liveborn Apgars 9 and 9 weight 7 lbs. 9 oz. estimated blood loss was 700 mL postoperatively patient had a hemoglobin of 7 and she was transfused 2 units of packed red blood cells and appropriate rise in her hemoglobin by postoperative day #2 she had met all discharge criteria is as discharged home in stable condition. DISCHARGE MEDICATIONS: Please see below. ALLERGIES: Please see below. PHYSICAL EXAMINATION ON DISCHARGE: VITAL SIGNS: Please see below. GENERAL: Well-appearing ABDOMINAL EXAMINATION: Soft properly tender fundus below umbilicus. Incision was dressed EXTREMITIES: Negative Tenderness NEUROLOGICAL EXAMINATION: Grossly intact PSYCHIATRIC EXAMINATION: Appropriate LABORATORY DATA: Please see below. ACTIVITY: As tolerated. DIET: Regular DISCHARGE PLAN: 1. follow up in 2 weeks to report severe. 2. vaginal bleeding fever or incisional issues 3. remove dressing in 5-7 days 4. Remain on pelvic rest for 6 weeks DISCHARGE CONDITION: Stable. Vital Signs/I&Os Vital Signs Date Time Temp Pulse Resp B/P (MAP) Pulse Ox O2 Delivery O2 Flow Rate FiO2 02/01/20 06:00 98.9 94 18 120/78 (92) 98 Room Air I&O- Last 24 Hours up to 6 AM 02/01/20 06:00 Intake Total 756 ml Output Total 1275 ml Balance -519 ml Laboratory Data Labs 24H Laboratory Tests 2 02/01/20 06:50: Nucleated Red Blood Cells % (auto) 0.0 CBC/BMP Laboratory Tests 02/01/20 06:50 Discharge Medications Scheduled Buspirone HCl (Buspirone HCl) 15 Mg Tab, 15 PO BID, (Reported) Docusate Sodium (Docusate Sodium) 100 Mg Capsule, 100 MG PO BID Ibuprofen (Ibuprofen) 800 Mg Tablet, 800 MG PO Q8H Methadone HCl (Methadone HCl) 10 Mg Tablet, 65 MG PO DAILY, (Reported) No.137/Iron/Folic Acd ( Vitamin Tablet) 1 Each Tablet, 1 TAB PO DAILY, (Reported) Scheduled PRN Oxycodone/Acetaminophen (Oxycodone-Acetaminophen 5-325) 1 Each Tablet, 2 TAB PO Q6H PRN for SEVERE PAIN (PS 8-10) Allergies Coded Allergies: latex (Verified Allergy, Intermediate, RASH, 01/29/20) tomato (Verified Allergy, Intermediate, spaghetti sauce- skin rash, 01/29/20) codeine (Verified Adverse Reaction, Mild, night terrors, 01/29/20) KELVIN HARTMANN MD. Feb 01, 2020 09:22
== END 2020-02-01 19:00 | disposition home or self-care (01) | DRG 540 ==
LOC: M LDI 07:40 → M OBS 01-30 11:49
PROVIDERS: ADMIT Obstetrics & Gynecology; ATTEND Obstetrics & Gynecology
PROC: 3E033VJ Introduction of Other Hormone into Peripheral Vein, Percutaneous Approach (ICD-10-PCS; 2020-01-29)
PROC: 10907ZC Drainage of Amniotic Fluid, Therapeutic from Products of Conception, Via Natural or Artificial Opening (ICD-10-PCS; 2020-01-29)
PROC: 10D00Z1 Extraction of Products of Conception, Low, Open Approach (ICD-10-PCS; principal; 2020-01-30 08:41)
DX: O48.0 Post-term pregnancy (principal); F11.20 Opioid dependence, uncomplicated; O99.324 Drug use complicating childbirth; O64.0XX0 Obstructed labor due to incomplete rotation of fetal head, not applicable or unspecified; Z3A.40 40 weeks gestation of pregnancy; O99.344 Other mental disorders complicating childbirth; F32.9 Major depressive disorder, single episode, unspecified; F41.9 Anxiety disorder, unspecified; O99.824 Streptococcus B carrier state complicating childbirth; Z37.0 Single live birth

== ENCOUNTER → 2020-07-31 | Outpatient (REF) | payer OTHER ==
[~2020-07-31] MED LIST changes: +DOCU100C16 PO; +IBUP80TA PO; +METH10TA2 PO; +PERCOCET PO; +PRENTAB9 PO
[2020-07-31 13:13] LABS: ALBUMIN 3.9 GM/DL (3.2-5.2); ALT/SGPT 47 U/L (12-78); BILIRUBIN,TOTAL 0.4 MG/DL (0.2-1.0); BLOOD UREA NITROGEN 14 MG/DL (7-18); CALCIUM LEVEL 9.4 MG/DL (8.5-10.1); CARBON DIOXIDE LEVEL 29 MEQ/L (21-32); CHLORIDE LEVEL 101 MEQ/L (98-107); CHOLESTEROL LEVEL 168 MG/DL (<200); CHOLESTEROL RISK RATIO 3.169 (<5); CREATININE FOR GFR 0.66 MG/DL (0.55-1.30); GLOMERULAR FILTRATION RATE > 60.0 (>60); GLUCOSE, FASTING 76 MG/DL (70-100); HDL CHOLESTEROL 53 MG/DL (>40); LDL CHOLESTEROL 72 MG/DL (<100); NON-HDL-C 115 MG/DL; SODIUM LEVEL 135 MEQ/L (136-145); TOTAL PROTEIN 7.4 GM/DL (6.4-8.2); TRIGLYCERIDES LEVEL 214 MG/DL (<150)
== END ==
LOC: M LAB REF 11:45
PROVIDERS: ATTEND Family Medicine Addiction Medicine
DX: Z13.228 Encounter for screening for other metabolic disorders (principal)

== ENCOUNTER → 2020-12-03 | Outpatient (REF) | payer OTHER ==
[2020-12-03 19:14] LABS: GC DNA AMPLIFICATION NEGATIVE (NEGATIVE)
== END ==
LOC: M SFHCWAGY 16:44
PROVIDERS: ATTEND Obstetrics & Gynecology
DX: Z12.4 Encounter for screening for malignant neoplasm of cervix (principal); R87.610 Atypical squamous cells of undetermined significance on cytologic smear of cervix (ASC-US); Z11.3 Encounter for screening for infections with a predominantly sexual mode of transmission

== ENCOUNTER → 2021-01-20 | Outpatient (REF) | payer OTHER ==
[~2021-01-20] MED LIST changes: +METH-1177 PO; -METH10TA2 PO
== END ==
LOC: M SFHCWAGY 19:07
PROVIDERS: ATTEND Obstetrics & Gynecology
DX: R87.612 Low grade squamous intraepithelial lesion on cytologic smear of cervix (LGSIL) (principal)

== ENCOUNTER → 2022-07-27 | Outpatient (REF) | payer OTHER | LOC: M SFHCWAGY 17:29 | PROVIDERS: ATTEND Obstetrics & Gynecology | DX: Z12.4 Encounter for screening for malignant neoplasm of cervix (principal) ==

== ENCOUNTER → 2022-08-16 | Outpatient (CLI) | payer OTHER ==
[2022-08-16 12:29] LABS: HEMATOCRIT 41.5 % (36.0-47.0); HEMOGLOBIN 13.2 g/dl (12.0-15.5); MEAN CORPUSCULAR HEMOGLOBIN 28.9 pg (27.0-33.0); MEAN CORPUSCULAR HGB CONC 31.8 g/dl (32.0-36.5); PLATELET COUNT, AUTOMATED 252 10^3/uL (150-450); RED BLOOD COUNT 4.56 10^6/uL (4.00-5.40); WHITE BLOOD COUNT 9.5 10^3/uL (4.0-10.0)
[2022-08-16 13:36] LABS: GC DNA AMPLIFICATION NEGATIVE (NEGATIVE)
[2022-08-16 14:27] LABS: ALBUMIN 3.4 G/DL (3.2-5.2); ALKALINE PHOSPHATASE 81 U/L (46-116); ALT/SGPT 34 U/L (7.0-40); AST/SGOT 24 U/L (<34); BILIRUBIN,TOTAL 0.5 MG/DL (0.3-1.2); BLOOD UREA NITROGEN 20 MG/DL (9-23); CALCIUM LEVEL 8.8 MG/DL (8.5-10.1); CARBON DIOXIDE LEVEL 28 MMOL/L (20-31); CHLORIDE LEVEL 102 MMOL/L (98-107); CREATININE FOR GFR 0.61 MG/DL (0.55-1.30); GLOMERULAR FILTRATION RATE > 60.0 (>60); GLUCOSE, FASTING 115 MG/DL (60-100); POTASSIUM SERUM 4.4 MMOL/L (3.5-5.1); SODIUM LEVEL 136 MMOL/L (136-145)
[2022-08-16 19:00] LABS: TOTAL PROTEIN 6.3 G/DL (5.7-8.2)
[2022-08-16 19:12] LABS: HEPATITIS B SURFACE ANTIGEN NEGATIVE (NEGATIVE)
[2022-08-16 19:33] LABS: HEPATITIS C VIRUS ABY INDEX < 0.0 INDEX (<0.8)
[2022-08-16 19:37] LABS: HIV 1&2 SCREEN CENTAUR NEGATIVE (NEGATIVE)
[2022-08-16 21:07] LABS: HCG, SERUM QUALITATIVE NEGATIVE (NEGATIVE)
== END ==
LOC: M LAB 11:11
PROVIDERS: ATTEND Family Medicine
DX: F11.20 Opioid dependence, uncomplicated (principal)
CPT/HCPCS: 36415; 80053; 84703; 85027; 86780; 86803; 87340; 87389; 87810; 87850; G0480

== ENCOUNTER → 2022-08-17 | Outpatient (CLI) | payer OTHER | LOC: M LAB 11:31 | PROVIDERS: ATTEND Family Medicine | DX: F11.20 Opioid dependence, uncomplicated (principal) | CPT/HCPCS: 36415; G0480 ==

== ENCOUNTER → 2023-07-06 | Outpatient (REF) | payer OTHER | LOC: M SFHCWAGY 13:04 | PROVIDERS: ATTEND Nurse Practitioner Family | DX: N94.10 Unspecified dyspareunia (principal) ==